=== PATIENT | female | born 1975 | race American Indian/Alaskan Native ===

== ENCOUNTER 2018-03-03 17:17 | Emergency (ER) | payer OTHER ==
[2018-03-03 17:44] VITALS: BP 117/42
[2018-03-03] MEDS ORDERED: NACL 0.9% 1000 ML 1,000 ML IV ONE (17:52)
[2018-03-03 18:48] LABS: Basophils % (Auto) 0.3 % (0.0-1.8); Eosinophils # (Auto) 0.3 K/mm3 (0.0-0.4); Eosinophils % (Auto) 3.2 % (0.0-4.3); Hematocrit 39.7 % (30.3-42.9); Hemoglobin 13.4 gm/dl (10.1-14.3); Lymphocytes # (Auto) 2.3 K/mm3 (1.2-5.4); Lymphocytes % (Auto) 25.6 % (13.4-35.0); Mean Corpuscular HGB Conc 34 % (30-34); Mean Corpuscular Volume 106 fl (79-97); Monocytes # (Auto) 0.7 K/mm3 (0.0-0.8); Monocytes % (Auto) 7.2 % (0.0-7.3); Platelet Count 249 K/mm3 (140-440); Red Blood Count 3.74 M/mm3 (3.65-5.03); Red Cell Distribution Width 13.4 % (13.2-15.2)
[2018-03-03 19:07] LABS: Alanine Aminotransferase 16 units/L (7-56); Albumin 4.2 g/dL (3.9-5); BUN/Creatinine Ratio 11; Blood Urea Nitrogen 9 mg/dL (7-17); Calcium 8.6 mg/dL (8.4-10.2); Hemolysis Index 15
[2018-03-03 19:30] LABS: HCG Qualitative,Urine Negative (Negative)
[2018-03-03 19:34] LABS: Bilirubin,Urine NEG (Negative); Blood,Urine NEG (Negative); Color,Urine Yellow (Yellow); Mucus,Urine FEW /HPF; Protein,Urine <15 mg/dL mg/dL (Negative); Urobilinogen,Urine < 2.0 mg/dL (<2.0)
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
== END 2018-03-03 21:38 | disposition home or self-care (01) ==
LOC: ED 17:17
DX: S39.012A Strain of muscle, fascia and tendon of lower back, initial encounter (principal); R11.2 Nausea with vomiting, unspecified; F17.200 Nicotine dependence, unspecified, uncomplicated; F12.90 Cannabis use, unspecified, uncomplicated; Z98.51 Tubal ligation status; V89.2XXA Person injured in unspecified motor-vehicle accident, traffic, initial encounter; Y93.89 Activity, other specified; Y92.488 Other paved roadways as the place of occurrence of the external cause; Y99.8 Other external cause status
CPT/HCPCS: 36415; 80053; 81001; 81025; 83690; 85025; 99283

== ENCOUNTER 2018-08-31 10:33 | Emergency (ER) | payer BC ==
[2018-08-31] MEDS ORDERED: MORPHINE IV ONE ×2 (11:08→14:12)
[2018-08-31] MEDS ORDERED: ZOFRAN IV ONE (11:08)
--- NOTE | 2018-08-31 11:23 | Emergency Department Report ---
HPI - General Chief Complaint: Abdominal Pain Time Seen by Provider: 08/31/18 10:45 - HPI HPI: 42-year-old -[place] female presents to the emergency department with a complaint of recurrent nausea, vomiting, generalized abdominal pain that has bee n going on since Thursday, 5 days ago. She previously went to [facility] and had some evaluation and was discharged home with some Reglan and tramadol. Yesterday she went to [facility] for the same complaints and says that she was discharged home with Bentyl, Zofran and Pepcid. She says that she has been taking these medications without much relief. She has a history of hernia, ovarian cyst, and previous gastroparesis. She has a tubal ligation. Patient denies having a primary care physician. No Recent travel or sick contacts at home. Patient does admit to some chronic marijuana use and is a alcohol drinker. She also smokes cigarettes. As part of the triage process, she was asked if she had any thoughts of harming herself or others and the patient responded yes as to some suicidal ideations. She confirms this with me and says it is because she has this chronic and recurrent abdominal pain, nausea, vomiting and "nobody can fix it would tell me why this is happening." ED Past Medical Hx - Past Medical History Hx Congestive Heart Failure: No Hx Diabetes: No Hx Asthma: No Hx COPD: No Hx HIV: No Additional medical history: hernia, ovarian cyst, colitis, gastroparesis,GA STRITIS - Surgical History Additional Surgical History: tubal ligation - Social History Smoking Status: Current Every Day Smoker Substance Use Type: Alcohol, Marijuana - Medications Home Medications: Home Medications Medication Instructions Recorded Confirmed Last Taken Type RX: levoFLOXacin [Levaquin TAB] 500 mg PO QDAY 06/02/14 06/02/14 06/01/14 History RX: metroNIDAZOLE [Flagyl TAB] 250 mg PO Q8HR 06/02/14 06/02/14 06/01/14 History Ondansetron [Zofran Odt] 4 mg PO Q8HR PRN #10 tab.rapdis 03/03/18 Unknown Rx RX: Naproxen 500 mg PO TID #12 tablet 03/03/18 Unknown Rx methOCARBAMOL [Robaxin TAB] 500 mg PO BID PRN #10 tab 03/03/18 Unknown Rx ED Review of Systems ROS: Stated complaint: ABD PAIN/VOMITING Other details as noted in HPI Comment: All other systems reviewed and negative Constitutional: denies: chills, fever Eyes: denies: eye pain, vision change ENT: denies: ear pain, throat pain Respiratory: denies: cough, shortness of breath Cardiovascular: denies: chest pain, palpitations Gastrointestinal: abdominal pain, nausea, vomiting Genitourinary: denies: dysuria, discharge Musculoskeletal: denies: back pain, arthralgia Skin: denies: rash, lesions Neurological: denies: headache, weakness Psychiatric: depression, suicidal thoughts Physical Exam - Physical Exam Vital Signs: Vital Signs 08/31/18 08/31/18 08/31/18 10:58 11:02 11:06 Temperature 98.1 F 98.1 F Pulse Rate 64 64 Respiratory 14 14 Rate Blood Pressure 141/91 Blood Pressure 141/91 [Right] O2 Sat by Pulse 97 97 97 Oximetry Physical Exam: GENERAL: The patient is well-developed well-nourished. HENT: Normocephalic. Atraumatic. Patient has moist mucous membranes. EYES: Extraocular motions are intact. Pupils equal reactive to light bilaterally. NECK: Supple. Trachea is midline. CHEST/LUNGS: Clear to auscultation. There is no respiratory distress noted. HEART/CARDIOVASCULAR: Regular. There is no tachycardia. There is no murmur. ABDOMEN: Abdomen is soft. Generalized tenderness to palpation of the abdomen. No guarding. Patient has normal bowel sounds. There is no abdominal distention. SKIN: Skin is warm and dry. NEURO: The patient is awake, alert, and oriented. The patient is cooperative. The patient has no focal neurologic deficits. The patient has normal speech. MUSCULOSKELETAL: There is no tenderness or deformity. There is no evidence of acute injury. ED Course Vital Signs 08/31/18 08/31/18 08/31/18 10:58 11:02 11:06 Temperature 98.1 F 98.1 F Pulse Rate 64 64 Respiratory 14 14 Rate Blood Pressure 141/91 Blood Pressure 141/91 [Right] O2 Sat by Pulse 97 97 97 Oximetry ED Medical Decision Making - Lab Data Result diagrams: 08/31/18 11:18 08/31/18 11:18 - Radiology Data Radiology results: report reviewed, image reviewed interpreted by me: Abdominal x-ray shows nonspecific nonobstructive bowel gas CT ABDOMEN AND PELVIS WITH CONTRAST HISTORY: Abdominal pain, nausea and vomiting, constipation for 4 days COMPARISON: None. TECHNIQUE: Axial CT images were obtained through the abdomen and pelvis after 100 cc of Omnipaque 300 intravenously. Sagittal and coronal reformatted images. All CT scans at this location are performed using CT dose reduction for ALARA by means of automated exposure control. FINDINGS: CT ABDOMEN: Lung Bases: Clear. Liver: No significant abnormality. Biliary: No significant abnormality. Spleen: No significant abnormality. Unenlarged. Pancreas: No significant abnormality. Adrenals: No significant abnormality. Kidneys: No significant abnormality. Lymphatics: No lymphadenopathy. Vasculature: No significant abnormality. Bowel/Peritoneum: No significant abnormality. No free air. No free fluid. CT PELVIS: : No significant abnormality. Osseous Structures: No significant abnormality. Additional Findings: None IMPRESSION: No significant abnormality. - Medical Decision Making This patient presents to the emergency department with complaint of generalized abdominal pain, nausea and vomiting. She has a history of gastroparesis in the past. She has been seen at 2 other emergency departments over the past 2 days. Her labs have been mostly unremarkable. Urinalysis does show some signs of dehydration with 80 ketones in the urine. The patient does present with some vomiting seen. She has a history of regular marijuana usage so some capsaicin cream was tried on the abdomen as a treatment for cannabinoid hyperemesis syndrome. This, along with Zofran, does appear to have helped with her nausea and vomiting. However the patient continues to complain of abdominal pain. Abdominal x-ray does not show any acute process. A CT scan of the abdomen and pelvis with IV contrast was also done that does not show any acute process. Given the negative labs, negative CT scan of the abdomen and pelvis in the patient's normal, stable vitals, the patient appears medically cleared Initially, through triage, the patient admitted to some suicidal ideations. She equates it with her frustration of having this recurrent abdominal pain, nausea, vomiting without any definitive diagnosis. However secondary to suicidal ideations, the patient was made a 1013. - Differential Diagnosis cannabinoid hyperemesis syndrome, cyclic vomiting, depression Critical Care Time: No Critical care attestation.: If time is entered above; I have spent that time in minutes in the direct care of this critically ill patient, excluding procedure time. ED Disposition Clinical Impression: Nausea and vomiting in adult, Acute abdominal pain, Suicidal ideations Disposition: DC/TX-65 PSY HOSP/PSY UNIT Is pt being admited?: No Condition: Stable Instructions: Abdominal Pain (ED) Referrals: EVAN SANTOS MD [Primary Care Provider] - 3-5 Days Time of Disposition: 20:12
[2018-08-31 11:34] LABS: Basophils # (Auto) 0.2 K/mm3 (0.0-0.1); Basophils % (Auto) 1.6 % (0.0-1.8); Eosinophils % (Auto) 0.5 % (0.0-4.3); Hematocrit 38.2 % (30.3-42.9); Hemoglobin 12.9 gm/dl (10.1-14.3); Lymphocytes # (Auto) 1.3 K/mm3 (1.2-5.4); Lymphocytes % (Auto) 13.4 % (13.4-35.0); Mean Corpuscular HGB Conc 34 % (30-34); Mean Corpuscular Volume 105 fl (79-97); Monocytes # (Auto) 0.6 K/mm3 (0.0-0.8); Monocytes % (Auto) 6.4 % (0.0-7.3); Platelet Count 286 K/mm3 (140-440); Red Blood Count 3.62 M/mm3 (3.65-5.03); Red Cell Distribution Width 13.1 % (13.2-15.2)
[2018-08-31 11:54] LABS: Alanine Aminotransferase 16 units/L (7-56); Albumin 3.9 g/dL (3.9-5); BUN/Creatinine Ratio 9; Blood Urea Nitrogen 8 mg/dL (7-17); Calcium 8.7 mg/dL (8.4-10.2); Hemolysis Index 5
[2018-08-31 11:55] LABS: Bilirubin,Direct < 0.2 mg/dL (0-0.2)
--- NOTE | 2018-08-31 12:08 | XRay Report ---
ABDOMEN 2 VIEW(S) INDICATION / CLINICAL INFORMATION: Abdominal pain. COMPARISON: None available. FINDINGS: TUBES / LINES: None. BOWEL GAS PATTERN/EXTRALUMINAL GAS: No significant abnormality. No pneumatosis or free air. ADDITIONAL FINDINGS: No significant additional findings. IMPRESSION: 1. No acute findings. Signer Name: Renny Morrison MD Signed: 08/31/2018 12:04 PM Workstation Name: [id number]
[2018-08-31] MEDS ORDERED: ZOSTRIX HP TP ONE (12:12)
[2018-08-31] MEDS: KCL 10MEQ/100ML 10 MEQ/100 ML BAG IV SCH ×2 (12:38→18:09)
--- NOTE | 2018-08-31 16:16 | Cat Scan Report ---
CT ABDOMEN AND PELVIS WITH CONTRAST HISTORY: Abdominal pain, nausea and vomiting, constipation for 4 days COMPARISON: None. TECHNIQUE: Axial CT images were obtained through the abdomen and pelvis after 100 cc of Omnipaque 300 intravenously. Sagittal and coronal reformatted images. All CT scans at this location are performed using CT dose reduction for ALARA by means of automated exposure control. FINDINGS: CT ABDOMEN: Lung Bases: Clear. Liver: No significant abnormality. Biliary: No significant abnormality. Spleen: No significant abnormality. Unenlarged. Pancreas: No significant abnormality. Adrenals: No significant abnormality. Kidneys: No significant abnormality. Lymphatics: No lymphadenopathy. Vasculature: No significant abnormality. Bowel/Peritoneum: No significant abnormality. No free air. No free fluid. CT PELVIS: : No significant abnormality. Osseous Structures: No significant abnormality. Additional Findings: None IMPRESSION: No significant abnormality. Signer Name: Fabián Cobian Jr, MD Signed: 08/31/2018 4:12 PM Workstation Name: [id number]
[2018-08-31] MEDS ORDERED: KCL 10MEQ/100ML 10 MEQ/100 ML BAG IV ONE (16:48)
[2018-08-31 17:33] LABS: Bilirubin,Urine NEG (Negative); Blood,Urine MOD (Negative); Color,Urine Yellow (Yellow); Mucus,Urine 1+ /HPF; Protein,Urine <15 mg/dL mg/dL (Negative); Urobilinogen,Urine < 2.0 mg/dL (<2.0)
[2018-08-31 17:39] LABS: Amphetamine Screen,Urine PRESUMPTIVE NEGATIVE; Benzodiazepines Screen,Urine PRESUMPTIVE NEGATIVE; Cocaine Screen,Urine PRESUMPTIVE NEGATIVE; Methadone Screen,Urine PRESUMPTIVE NEGATIVE
[2018-08-31] MEDS ORDERED: NACL 0.9% 1000 ML 1,000 ML IV ONE (17:59)
[2018-08-31] MEDS ORDERED: PEPCID IV ONE (18:00)
[2018-08-31] MEDS ORDERED: TORADOL IV ONE (18:00)
[2018-08-31 18:33] LABS: Cannabinoid Screen,Urine PRESUMPTIVE POSITIVE; Opiate Screen,Urine PRESUMPTIVE POSITIVE
[2018-09-01 14:09] VITALS: BP 110/70
--- NOTE | 2018-09-01 14:43 | Consultation ---
History of Present Illness - Reason for Consult Consult date: 09/01/18 Reason for consult: Initial Psychiatric Evaluation - Chief Complaint Chief complaint: " nausea, vomiting, and stomach pain" - History of Present Psychiatric Illness Patient is a 42-year-old -[place] Citizen female that presents to the emergency department with a complaint of recurrent nausea, vomiting, generalized abdominal pain that has been going on since Thursday, 5 days ago. Patient states, " this was my 3rd hospitalization since Thursday. They misunderstood me yesterday. I never said I wanted to kill myself. I told them that I wanted to take more pills than prescribed to stop the pain." Today the patient is calm and cooperative during the assessment. She has no past psychiatric history. She verbalizes " since I've been in the hospital my nausea, vomiting, and abdominal pain has resolved. I'm ready to get back to work." She reports good energy, decrease sleep, and decrease appetite ( due to recurring nausea, vomiting, and generalized abdominal pain). She states, " I now have insurance and will be able to follow-up with a GI specialist after I'm discharged." She denies SI/HI's, A/VH's, and delusions. History of Current Psychiatric Medications: Patient denies. Past Psychiatric History: no past psychiatric diagnosis; no previous inpatient psychiatric hospitalization; no outpatient psychiatrist; no previous suicide attempt. History of Trauma/Abuse: Patient denies trauma. Patient denies sexual, physical, and mental abuse. History of Alcohol/Drug Abuse: Alcohol- " beer occasionally, " I may drink on my off days Thursday and Thursday," last use- 08-22-18, first use - age 17; Marijuana/vape - " occasionally, 1-2 times monthly," last use- 08/22/2018, first use - 07/04/2018. Social History: Some college- highest level of education; lives with 1 son/daughter/grandchild; employed- [employer]; no pending legal issues. Family History of Psychiatric Illness/Substance Abuse: Patient denies. Medications and Allergies Allergies Allergy/AdvReac Type Severity Reaction Status Date / Time No Known Allergies Allergy Verified 09/10/13 02:44 Home Medications Medication Instructions Recorded Confirmed Last Taken Type levoFLOXacin [Levaquin TAB] 500 mg PO QDAY 06/02/14 06/02/14 06/01/14 History metroNIDAZOLE [Flagyl TAB] 250 mg PO Q8HR 06/02/14 06/02/14 06/01/14 History Naproxen 500 mg PO TID #12 tablet 03/03/18 Unknown Rx Ondansetron [Zofran Odt] 4 mg PO Q8HR PRN #10 tab.rapdis 03/03/18 Unknown Rx methOCARBAMOL [Robaxin TAB] 500 mg PO BID PRN #10 tab 03/03/18 Unknown Rx Mental Status Exam - Vital signs Last Vital Signs Temp 98.5 F 09/01/18 14:08 Pulse 69 09/01/18 14:08 Resp 18 09/01/18 14:08 BP 110/70 09/01/18 14:08 Pulse Ox 100 09/01/18 14:08 - Exam Narrative exam: Mental Status Exam: Appearance: calm, cooperative Behavior: regular eye contact Speech: regular rate and tone Mood: "I feel much better" Affect: congruent to mood Thought Process: linear Thought Content: denies SI/HI's, AVH's, delusions Motor Activity: ambulatory Cognition: A/O x 3 Insight: fair Judgment: fair Results Result Diagrams: 08/31/18 11:18 08/31/18 11:18 Abnormal lab results 08/31/18 Range/Units Unknown Ur Specific [place] 1.044 H (1.003-1.030) Urine WBC (Auto) 11.0 H (0.0-6.0) /HPF All other labs normal. Assessment and Plan Assessment and plan: Assessment and plan: Impression: MDD, single episode, mild. Today the patient is calm and cooperative during the assessment. She denies SI/HI's, A/VH's, and delusions. Recommendation/Plan: 1. Patient does not meet 1013 criteria. Will rescind 1013. Staffed with Dr. Galdino Adams.
== END 2018-09-01 17:56 | disposition home or self-care (01) ==
LOC: ED 10:33
DX: R11.2 Nausea with vomiting, unspecified (principal); R10.84 Generalized abdominal pain; F32.9 Major depressive disorder, single episode, unspecified; K52.9 Noninfective gastroenteritis and colitis, unspecified; F17.200 Nicotine dependence, unspecified, uncomplicated; Z98.51 Tubal ligation status; Z12.10 Encounter for screening for malignant neoplasm of intestinal tract, unspecified; Z79.899 Other long term (current) drug therapy
CPT/HCPCS: 36415; 74019; 74177; 80048; 80076; 80307; 81001; 83690; 84703; 85025; 87086; 96361; 96374; 96375; 96376; 99285; G0480; J1885; J2270; J2405; J3480; Q9967; 80320